=== PATIENT | male | born 1970 | race Caucasian/White ===

== ENCOUNTER 2022-01-11 06:27 | Day surgery (SDC) | payer OTHER ==
[~2022-01-11 06:27] MED LIST: Lactated Ringers 1,000 ML IV SCH; Sodium Chloride 0.9% 10 ML Syringe FLUSH PRN; Sodium Chloride 0.9% 2.5 ML Syringe FLUSH PRN; Sodium Chloride 0.9% 20 ML SDV IV PRN
[2022-01-11] MEDS ORDERED: Ondansetron 4 MG/2 ML SDV ONE (07:09)
[2022-01-11] MEDS ORDERED: Propofol 200 MG/20 ML SDV ONE (07:09)
[2022-01-11] MEDS ORDERED: Midazolam 1 MG/ML 2 ML SDV ONE (07:09)
[2022-01-11] MEDS ORDERED: fentaNYL 100 MCG/2 ML SDV ONE (07:12)
== END 2022-01-11 09:05 | disposition home or self-care (01) ==
LOC: MW.SDS 06:27
PROVIDERS: ATTEND Surgery
DX: Z12.11 Encounter for screening for malignant neoplasm of colon (principal); K57.30 Diverticulosis of large intestine without perforation or abscess without bleeding; K62.1 Rectal polyp; K64.3 Fourth degree hemorrhoids; F32.A Depression, unspecified; F41.9 Anxiety disorder, unspecified; F17.210 Nicotine dependence, cigarettes, uncomplicated; K21.9 Gastro-esophageal reflux disease without esophagitis; I10 Essential (primary) hypertension; Z79.899 Other long term (current) drug therapy; Z88.5 Allergy status to narcotic agent; Z86.010 Personal history of colon polyps
CPT/HCPCS: 45380; J2250; J2405; J2704; J3010; J7120; 00812